=== PATIENT | female | born 1965 | race African-American/Black ===

== ENCOUNTER 2016-06-30 10:38 | Day surgery (SDC) | payer OTHER ==
[~2016-06-30] VITALS: Ht 176.5 cm; Wt 100.1 kg
[2016-06-30] MEDS ORDERED: ESTR2TAB PO (11:33)
[2016-06-30] MEDS ORDERED: CLON-412 PO (11:33)
[2016-06-30] MEDS ORDERED: FERR47.56 PO (11:33)
[2016-06-30] MEDS ORDERED: ENAL10TA PO (11:33)
[2016-06-30] MEDS ORDERED: FOLI-49 PO (11:33)
[2016-06-30] MEDS ORDERED: SPIR100T31 PO (11:33)
[2016-06-30] MEDS ORDERED: SIMV10TA PO (11:33)
[2016-06-30 11:39] VITALS: Ht 176.5 cm; Wt 100.1 kg
[2016-06-30 11:57] VITALS: BP 122/79; PULSE 74; RESP 16
[2016-06-30] MEDS ORDERED: PROPOFOL 60 ML ONE (12:08)
[2016-06-30 13:05] VITALS: BP 123/74; PULSE 77; RESP 15
--- NOTE | 2016-06-30 21:31 | GILP ---
DATE OF PROCEDURE: PROCEDURE PERFORMED: Colonoscopy with biopsy. INDICATION: A 57-year-old female undergoing this procedure for iron deficiency anemia. The risk of the procedure, related and unrelated complications, anesthetic risks, alternatives discussed. Info rmed consent was obtained. DESCRIPTION OF PROCEDURE: Patient was brought to the GI lab, sedated by Dr. Jackson. After obtaining sedation, scope was passed with much ease into esophagus. It grossly was normal. Z-line was at 40 cm; however, when I was in the oropharyngeal cavity, the scope tip was there, she had a violent cou gh. The scope was then passed through the GE junction into the stomach. Stomach mucosa revealed ch ronic gastritis and multiple erosions, maybe 10 to 15 in number. Random 3-4 biopsies obtained to rul e out H. pylori infection. Duodenum, first and second part, including the ampulla, appeared normal. Biopsy taken from the second part to rule out celiac disease. Retroversion in the stomach was nor mal. Scope was then removed with good patient tolerance. IMPRESSION: 1. Normal esophagus. 2. Normal Z-line at 40 cm. 3. Erosive gastritis. 4. Chronic gastritis. 5. Normal duodenum. Small bowel biopsy taken. PLAN: Review histopathology. Patient should refrain from aspirin and NSAID. COLONOSCOPY REPORT: She was turned around. Scope was passed with much ease into rectum, advanced t hrough sigmoid, descending, transverse colon, all the way into cecum. Appendiceal orifice and IC va lve identified. While coming out, mucosa thoroughly inspected. The rest of the colon was normal. Retroversion done. No growth was seen. No hemorrhoids identified. Scope was straightened out, and on antegrade examination, the dentate line was well defined. Scope was removed with excellent sofia ent tolerance. IMPRESSION: 1. Normal findings all the way into cecum. 2. Clarity and cleanliness was good. PLAN: This finding cannot explain anemia. Patient may need capsule endoscopy. Dictated By: YASIR EVANS/MELVA Conf#: [id number] DID#: [id number]
== END 2016-06-30 14:07 | disposition home or self-care (01) ==
LOC: GIL 10:38
PROVIDERS: ATTEND Internal Medicine Gastroenterology
DX: Z12.11 Encounter for screening for malignant neoplasm of colon (principal); K29.50 Unspecified chronic gastritis without bleeding; D50.9 Iron deficiency anemia, unspecified
CPT/HCPCS: 45380; 88305; 88312; Z7610

== ENCOUNTER 2018-05-06 12:25 | Emergency (ER) | payer OTHER ==
[~2018-05-06] VITALS: Wt 104.5 kg
[~2018-05-06 12:25] MED LIST: CLON-412 PO; ENAL10TA PO; ESTR2TAB PO; FERR47.56 PO; FOLI-49 PO; SIMV10TA PO; SPIR100T4 PO
[2018-05-06] MEDS ORDERED: KETOROLAC 30 MG INJ IV STA (13:54)
[2018-05-06] MEDS ORDERED: SOD CHLORIDE 0.9% 1,000 ML IV STA (13:54)
[2018-05-06] MEDS ORDERED: ONDANSETRON 4 MG INJ IV STA (13:54)
[2018-05-06] MEDS ORDERED: HYDR-4011 PO (15:29)
[2018-05-06] MEDS ORDERED: FAMO-96 PO (15:29)
[2018-05-06 15:40] VITALS: BP 113/58; PULSE 60; RESP 18
--- NOTE | 2018-05-06 15:40 | ERD ---
ER Documentation Chief Complaint Chief Complaint R LOWER ABD PAIN X 3 DAYS; DENIES N/V HPI 53 yr old female complaining of epigastric pain times 3 days. Denies any vomiting or fevers. Has not taken medications for symptoms. Denies change in urination or bowel movement. Denies other medical problems. Denies chest pain or shortness of breath. Denies fever. NKDA. Surgical history denies. Social history denies ROS All systems reviewed and are negative except as per history of present illness. Medications Home Meds Active Scripts Hydrocodone/Acetaminophen ([place] 5-325 Tablet) 1 Each Tablet, 1 TAB PO Q6H PRN for PAIN, #7 TAB Prov:ANTONI WELLER PA-C 05/06/18 Famotidine* (Pepcid*) 20 Mg Tablet, 20 MG PO BID for 4 Days, #30 TAB Prov:ANTONI WELLER PA-C 05/06/18 Reported Medications Folic Acid* (Folic Acid*) 1 Mg Tablet, 1 MG PO DAILY, TAB 06/30/16 Clonazepam* (Klonopin*) 1 Mg Tablet, 1 MG PO BID, TAB 06/30/16 Simvastatin* (Zocor*) 10 Mg Tablet, 10 MG PO QHS, #30 TAB 06/30/16 Spironolactone* (Spironolactone*) 100 Mg Tablet, 100 MG PO BID, TAB 06/30/16 Enalapril Maleate* (Enalapril Maleate*) 10 Mg Tablet, 10 MG PO BID, TAB 06/30/16 Estradiol* (Estradiol*) 2 Mg Tablet, 2 MG PO DAILY, TAB 06/30/16 Ferrous Sulfate (SLOW RELEASE IRON) 47.5 Mg Tablet.er, 47.5 MG PO, TAB 06/30/16 Allergies Allergies: Coded Allergies: No Known Drug Allergies (Verified Allergy, Unknown, 06/30/16) PMhx/Soc History of Surgery: Yes (breasts augmentation) Anesthesia Reaction: No Hx Neurological Disorder: No Hx Respiratory Disorders: No Hx Cardiac Disorders: Yes (HTN) Hx Psychiatric Problems: No Hx Miscellaneous Medical Probl: No Hx Alcohol Use: No Hx Substance Use: No Hx Tobacco Use: No Smoking Status: Never smoker FmHx Family History: No diabetes, No coronary disease, No other Physical Exam Vitals Vital Signs Date Temp Pulse Resp B/P (MAP) Pulse Ox O2 O2 Flow FiO2 Time Delivery Rate 05/06/18 98.1 71 18 113/65 99 12:35 (81) Physical Exam GENERAL: The patient is well-appearing, well-nourished, in no acute distress HEENT: Atraumatic. Conjunctivae are pink. Pupils equal, round, and reactive to light. There is no scleral icterus. Tympanic membranes clear bilaterally. Oropharynx clear. . CHEST: Clear to auscultation bilaterally. There are no rales, wheezes or rhonchi. HEART: Regular rate and rhythm. No murmurs, clicks, rubs or gallops. No S3 or S4. ABDOMEN: Normal active bowel sounds. No distention. Mild tenderness palpation epigastric region with no rebound tenderness. Result Diagram: 05/06/18 1415 05/06/18 1415 Results 24 hrs Laboratory Tests Test 05/06/18 14:15 05/06/18 15:22 05/06/18 15:24 White Blood Count 8.4 10^3/ul Red Blood Count 3.79 10^6/ul Hemoglobin 11.7 g/dl Hematocrit 35.2 % Mean Corpuscular Volume 92.9 fl Mean Corpuscular Hemoglobin 30.9 pg Mean Corpuscular 33.2 g/dl Hemoglobin Concent Red Cell Distribution Width 12.1 % Platelet Count 246 10^3/UL Mean Platelet Volume 9.8 fl Immature Granulocytes % 0.400 % Neutrophils % 66.7 % Lymphocytes % 21.0 % Monocytes % 10.4 % Eosinophils % 1.1 % Basophils % 0.4 % Nucleated Red Blood Cells % 0.0 /100WBC Immature Granulocytes # 0.030 10^3/ul Neutrophils # 5.6 10^3/ul Lymphocytes # 1.8 10^3/ul Monocytes # 0.9 10^3/ul Eosinophils # 0.1 10^3/ul Basophils # 0.0 10^3/ul Nucleated Red Blood Cells # 0.0 10^3/ul Sodium Level 141 mmol/L Potassium Level 5.1 mmol/L Chloride Level 101 mmol/L Carbon Dioxide Level 26 mmol/L Anion Gap 14 Blood Urea Nitrogen 17 mg/dl Creatinine 1.31 mg/dl Est Glomerular Filtrat 51 mL/min Rate mL/min Glucose Level 102 mg/dl Calcium Level 10.0 mg/dl Total Bilirubin 0.1 mg/dl Direct Bilirubin 0.00 mg/dl Indirect Bilirubin 0.1 mg/dl Aspartate Amino 32 IU/L Transf (AST/SGOT) Alanine 49 IU/L Aminotransferase (ALT/SGPT) Alkaline Phosphatase 72 IU/L Total Protein 8.2 g/dl Albumin 4.6 g/dl Globulin 3.60 g/dl Albumin/Globulin Ratio 1.27 Lipase 97 U/L Bedside Urine pH (LAB) 5.5 Bedside Urine Protein (LAB) Negative Bedside Urine Glucose (UA) Negative Bedside Urine Ketones (LAB) Negative Bedside Urine Blood Negative Bedside Urine Nitrite (LAB) Negative Bedside Urine Leukocyte Esterase Negative (L POC Beta HCG, Qualitative NEGATIVE Current Medications Medications Dose Sig/Ty Start Time Status Last (Trade) Ordered Route PRN Stop Time Admin Dose Reason Admin Sodium 1,000 ml @ Q1H STAT 05/06/18 DC 05/06/18 Chloride 1,000 mls/hr IV 13:54 14:11 05/06/18 14:53 Ondansetron 4 mg ONCE STAT 05/06/18 DC HCl (Zofran IV 13:54 Inj) 05/06/18 13:55 Ketorolac 30 mg ONCE STAT 05/06/18 DC 05/06/18 Tromethamine IV 13:54 14:12 (Toradol) 05/06/18 13:55 Procedures/MDM DIAGNOSTIC IMAGING REPORT Patient: NATALIE HAMLIN : 1965 Age: 53 Sex: F MR #: [id number] DOS: 05/06/18 1354 Ordering MD: AZALIA WELLER PA-C Location: [facility] Room/Bed: PROCEDURE: US Abdomen (right upper quadrant). CLINICAL INDICATION: Right upper quadrant pain TECHNIQUE: Multiple real-time longitudinal and transverse images of the right upper quadrant of the abdomen were acquired utilizing a curved array transducer. Images were reviewed on a high-resolution PACS workstation. COMPARISON: None FINDINGS: The liver is normal in size and echogenicity without focal mass or intrahepatic biliary dilatation. There is normal hepatopedal flow within the main portal vein. Liver measures 15.0 cm. The gallbladder is normal. There is no pericholecystic fluid or gallbladder wall thickening or gallstones. No intra or extrahepatic biliary dilatation is seen. The common bile duct measures 3.0 mm in maximal dimension. Limited visualization of the pancreas due to overlying bowel gas. No free fluid is identified. The right kidney measures 10.0 cm in length. There is normal echogenicity within the right kidney. There is no perinephric fluid collection. No hydronephrosis, mass, or calculus is seen. IMPRESSION: 1. Unremarkable right upper quadrant ultrasound. ER Course: 1 L normal saline given ED. Toradol and Zofran given ED. On reevaluation patient's pain had improved. MDM: 53-year-old female presenting with epigastric pain. I have low suspicion for choledocholithiasis, cholecystitis, cholangitis or pancreatitis. I have low suspicion for bowel abnormalities or acute abdomen. I have low suspicion for nephrolithiasis or pyelonephritis. Patient's urine is within normal limits, blood work is stable and ultrasound with exam is non-concerning. Patient is discharged with supportive medications and told to follow-up with primary care within 1-2 days for close evaluation. Patient is told symptoms change or worsen to immediately return to the ER. All questions answered at discharge Departure Diagnosis: Primary Impression: Epigastric abdominal pain Condition: Stable Patient Instructions: Epigastric Pain (Uncertain Cause) Referrals: [facility] YOU HAVE RECEIVED A MEDICAL SCREENING EXAM AND THE RESULTS INDICATE THAT YOU DO NOT HAVE A CONDITION THAT REQUIRES URGENT TREATMENT IN THE EMERGENCY DEPARTMENT. FURTHER EVALUATION AND TREATMENT OF YOUR CONDITION CAN WAIT UNTIL YOU ARE SEEN IN YOUR DOCTORS OFFICE WITHIN THE NEXT 1-2 DAYS. IT IS YOUR RESPONSIBILITY TO MAKE AN APPOINTMENT FOR FOLOW-UP CARE. IF YOU HAVE A PRIMARY DOCTOR --you should call your primary doctor and schedule an appointment IF YOU DO NOT HAVE A PRIMARY DOCTOR YOU CAN CALL OUR PHYSICIAN REFERRAL HOTLINE AT IF YOU CAN NOT AFFORD TO SEE A PHYSICIAN YOU CAN CHOSE FROM THE FOLLOWING [facility] [id number] [facility]. [facility] [address] [facility] [facility] [address] [facility] [address] [facility] [address] [facility]. [facility]. [address] Additional Instructions: FOLLOW UP WITH YOUR PRIMARY CARE PHYSICIAN TOMORROW.Return to this facility if you are not improving as expected. ANTONI WELLER PA-C May 06, 2018 15:40
== END 2018-05-06 15:42 | disposition home or self-care (01) ==
LOC: FTE 12:25
DX: R10.13 Epigastric pain (principal); I10 Essential (primary) hypertension
CPT/HCPCS: 76705; 80053; 81003; 81025; 83690; 85025; J1885; J7030; 36415; 96361; 96374; J2405